=== PATIENT | female | born 1975 | race Two or more races ===

== ENCOUNTER 2025-08-11 02:41 | Emergency (ER) | payer OTHER ==
[~2025-08-11] VITALS: Ht 154.9 cm; Wt 72.6 kg
[~2025-08-11 02:41] MED LIST: CIPROFLOXACIN500 MG PO; SYNTHROID50 MCG
[2025-08-11] MEDS ORDERED: KETOROLAC TROMETHAMINE 60 MG VIAL IM STA (03:57)
[2025-08-11] MEDS ORDERED: ORPHENADRINE CITRATE 30 MG/ML AMPUL IM STA (03:57)
[2025-08-11] MEDS ORDERED: ORPHENADRINE CITRATE 30 MG/ML AMPUL ONE (04:00)
[2025-08-11] MEDS ORDERED: KETOROLAC TROMETHAMINE 60 MG VIAL IM ONE (04:00)
[2025-08-11] MEDS ORDERED: KETO10TA2 PO (04:34)
[2025-08-11] MEDS ORDERED: NORFLEX100MG PO (04:34)
== END 2025-08-11 04:44 ==
LOC: ER 02:42
DX: M62.838 Other muscle spasm (principal); E03.8 Other specified hypothyroidism